=== PATIENT | male | born 1975 | race Caucasian/White ===

== ENCOUNTER 2019-07-10 17:08 | Emergency (ER) | payer SELFPAY ==
[~2019-07-10] VITALS: Ht 173 cm; Wt 38.0 kg
[2019-07-10] MEDS ORDERED: NS IV 1000 ML 1,000 ML IV SCH (17:24)
[2019-07-10] MEDS ORDERED: ONDANSETRON 4 MG/2 ML (SDV) Z0FRAN IVP ONE (17:30)
--- NOTE | 2019-07-10 17:48 | ED GI ---
General Chief Complaint: Abdominal/GI Problems Stated Complaint: VOMITING Nursing Triage Note: PT STATES HX OF LUNG CA WITH METS TO BRAIN AND SPINE, STAGE 4, CC TODAY OF VOMITING, 2 MONTHS AGO WAS TOLD CHEMO WAS NOT HELPING. HAS BEEN TREATED AT . Sepsis Screen: No Definite Risk History of Present Illness Date Seen by Provider: Jul 10, 2019 Time Seen by Provider: 17:15 Initial Comments 43-year-old male presents for nausea and vomiting since 11:00 AM today. He has stage IV lung cancer with metastasis to the brain, spine and liver. He discontinued chemo and was told by his oncologist there is no further treatment at this time. He reports passing a small stool earlier today. He has been unable to keep any fluids or food in. He has Zofran and Compazine at home but neither have helped or he has vomited after taking them. Patient denies having a primary care provider in this area. He goes to the [facility] for his medical management. He is full code and has not talked to a provider about hospice. Timing/Duration: 4-6 Hours Severity/Quality: Mild Location: Generalized Abdomen Radiation: No Radiation Activities at Onset: None Associated Symptoms: No Denies Symptoms, No Back Pain, No Chest Pain, No Diaphoresis, No Fever/Chills, No Fatigue, No Headache, No Heartburn; Nausea/Vomiting; No Rash, No Shortness of Air, No Swelling/Mass in Abdomen, No Syncope; Weakness; No Other Allergies and Home Medications Allergies Coded Allergies: No Known Drug Allergies (Unverified , 07/10/19) Patient Home Medication List Home Medication List Reviewed: Yes Review of Systems Review of Systems Constitutional: no symptoms reported, see HPI Gastrointestinal: See HPI; Denies Blood Streaked Stools, Denies Constipated, Denies Diarrhea, Denies Difficulty Swallowing; Nausea, Poor Appetite, Poor Fluid Intake; Denies Rectal Bleeding; Vomiting All Other Systems Reviewed Negative Unless Noted: Yes Past Vhkvwtd-Cruthx-Pdxapp Hx Past Med/Social Hx: Reviewed Nursing Past Med/Soc Hx Patient Social History Alcohol Use: Rarely Uses Alcohol Beverage of Choice: Beer Recreational Drug Use: Yes (THC) Smoking Status: Current Everyday Smoker Type Used: Cigarettes Recent Foreign Travel: No Contact w/Someone Who Travel: No Recent Infectious Disease Expo: No Recent Hopitalizations: No Physical Abuse: No Sexual Abuse: No Mistreated: No Fear: No Seasonal Allergies Seasonal Allergies: Yes Past Medical History Surgeries: Yes (HERNIA, BACK, BI LAT SHOULDERS) Orthopedic Respiratory: No Cardiac: No Neurological: Yes (SEIZURE DUE TO BRAIN CA) Seizure Disorder Gastrointestinal: No Musculoskeletal: Yes (CA IN SPINE) Endocrine: No HEENT: No Cancer: Yes (SPINE) Brain, Bone, Lung Did You Recieve Any Treatments: Yes What Type of Treatment Did You: Chemotherapy, Radiation, Surgical Intervention Psychosocial: No Integumentary: No Physical Exam Vital Signs Vital Signs - First Documented 07/10/19 17:14 Temp 36.7 Pulse 79 Resp 18 B/P (MAP) 138/95 (109) Pulse Ox 100 O2 Delivery Room Air Capillary Refill : NONE Height/Weight/BMI Height: '" Weight: lbs. oz. kg; 12.00 BMI Method: General Appearance: WD/WN, mild distress, cachetic HEENT: PERRL/EOMI, normal ENT inspection, TMs normal, pharynx normal, other (oromucosa pale and dry.) Neck: full range of motion, normal inspection Respiratory: chest non-tender, lungs clear, normal breath sounds, other (clubbing noted to finger nails) Cardiovascular: normal peripheral pulses, regular rate, rhythm Gastrointestinal: normal bowel sounds, non tender, soft Extremities: normal range of motion, non-tender, normal inspection, other (intentional tremor noted to right upper extremity, the patient reports this is been present since his seizure) Neurologic/Psychiatric: no motor/sensory deficits, alert, normal mood/affect, oriented x 3 Skin: warm/dry, pallor Progress/Results/Core Measures Results/Orders Lab Results Laboratory Tests Test 07/10/19 17:42 07/10/19 18:33 Range/Units White Blood Count 9.5 4.3-11.0 10^3/uL Red Blood Count 3.70 L 4.35-5.85 10^6/uL Hemoglobin 12.0 L 13.3-17.7 G/DL Hematocrit 36 L 40-54 % Mean Corpuscular Volume 96 80-99 FL Mean Corpuscular Hemoglobin 32 25-34 PG Mean Corpuscular Hemoglobin Concent 34 32-36 G/DL Red Cell Distribution Width 14.6 H 10.0-14.5 % Platelet Count 382 130-400 10^3/uL Mean Platelet Volume 8.1 7.4-10.4 FL Neutrophils (%) (Auto) 85 H 42-75 % Lymphocytes (%) (Auto) 9 L 12-44 % Monocytes (%) (Auto) 6 0-12 % Eosinophils (%) (Auto) 0 0-10 % Basophils (%) (Auto) 0 0-10 % Neutrophils # (Auto) 8.0 H 1.8-7.8 X 10^3 Lymphocytes # (Auto) 0.9 L 1.0-4.0 X 10^3 Monocytes # (Auto) 0.6 0.0-1.0 X 10^3 Eosinophils # (Auto) 0.0 0.0-0.3 10^3/uL Basophils # (Auto) 0.0 0.0-0.1 10^3/uL Sodium Level 132 L 135-145 MMOL/L Potassium Level 3.2 L 3.6-5.0 MMOL/L Chloride Level 96 L 98-107 MMOL/L Carbon Dioxide Level 23 21-32 MMOL/L Anion Gap 13 5-14 MMOL/L Blood Urea Nitrogen 11 7-18 MG/DL Creatinine 0.57 L 0.60-1.30 MG/DL Estimat Glomerular Filtration Rate > 60 BUN/Creatinine Ratio 19 Glucose Level 103 70-105 MG/DL Calcium Level 9.0 8.5-10.1 MG/DL Corrected Calcium 9.1 8.5-10.1 MG/DL Total Bilirubin 0.5 0.1-1.0 MG/DL Aspartate Amino Transf (AST/SGOT) 12 5-34 U/L Alanine Aminotransferase (ALT/SGPT) 19 0-55 U/L Alkaline Phosphatase 155 H 40-136 U/L Total Protein 6.9 6.4-8.2 GM/DL Albumin 3.9 3.2-4.5 GM/DL Amylase Level 49 25-125 U/L Lipase 21 8-78 U/L Urine Color YELLOW Urine Clarity SL CLOUDY Urine pH 8.0 5-9 Urine Specific [place] 1.010 L 1.016-1.022 Urine Protein NEGATIVE NEGATIVE Urine Glucose (UA) NEGATIVE NEGATIVE Urine Ketones NEGATIVE NEGATIVE Urine Nitrite NEGATIVE NEGATIVE Urine Bilirubin NEGATIVE NEGATIVE Urine Urobilinogen 0.2 < = 1.0 MG/DL Urine Leukocyte Esterase NEGATIVE NEGATIVE Urine RBC (Auto) NEGATIVE NEGATIVE Urine RBC NONE /HPF Urine WBC NONE /HPF Urine Crystals NONE /LPF Urine Amorphous Sediment RARE KUMAR PHOSPHATE H /LPF Urine Bacteria MODERATE H /HPF Urine Casts NONE /LPF Urine Mucus NEGATIVE /LPF Urine Culture Indicated NO My Orders Orders - BARDAYANA Amylase (07/10/19 17:24) Cbc With Automated Diff (07/10/19 17:24) Comprehensive Metabolic Panel (07/10/19 17:24) Lipase (07/10/19 17:24) Ua Culture If Indicated (07/10/19 17:24) Ondansetron Injection (Zofran Injectio (07/10/19 17:30) Ed Iv/Invasive Line Start (07/10/19 17:24) Ns Iv 1000 Ml (Sodium Chloride 0.9%) (07/10/19 17:24) Ns W/Kcl 20 Meq/L (Ns Iv W/Kcl 20 Meq/L) (07/10/19 18:30) Morphine Injection (Morphine Injection (07/10/19 19:18) Famotidine Injection (Pepcid Injection) (07/10/19 20:15) Medications Given in ED Current Medications Medications Dose Ordered Sig/Fanta Route Start Time Stop Time Status Last Admin Dose Admin Famotidine 20 mg ONCE ONCE IVP 07/10/19 20:15 07/10/19 20:16 DC 07/10/19 20:10 20 MG Ondansetron HCl 8 mg ONCE ONCE IVP 07/10/19 17:30 07/10/19 17:31 DC 07/10/19 17:46 8 MG Vital Signs/I&O 07/10/19 07/10/19 17:14 20:12 Temp 36.7 36.7 Pulse 79 76 Resp 18 18 B/P (MAP) 138/95 (109) 129/92 (109) Pulse Ox 100 100 O2 Delivery Room Air Room Air Blood Pressure Mean: 109 Progress Progress Note : Time: 17:15 Progress Note Patient seen and evaluated, will obtain labs, access the power port, normal saline 1 L per IV and Zofran 8 mg IV. 1800 Lab essentially normal, patient unable to urinate at this point. We'll gets Pepcid 20 mg IV. 1815 mild hypokalemia, will give normal saline with 20 mEq of potassium 1 L IV. 1830 patient complaining of mild pain, will give morphine 4 mg per IV. 191 patient resting with eyes closed, no nausea or vomiting since admission to the emergency department. 2004 patient continues to state that he is improved in his condition, discharge instructions and return precautions reviewed with him and encouraged that he establish with a primary care provider in [facility]. Departure Impression Primary Impression: Nausea and vomiting Qualified Codes: R11.14 - Bilious vomiting Additional Impression: Lung cancer, primary, with metastasis from lung to other site Qualified Codes: C34.90 - Malignant neoplasm of unspecified part of unspecified bronchus or lung Disposition: HOME, SELF-CARE Condition: Improved Departure-Patient Inst. Decision time for Depature: 20:05 Referrals: NO,LOCAL PHYSICIAN (PCP) Primary Care Physician Patient Instructions: Nausea and Vomiting, Adult (DC) Add. Discharge Instructions: Clear liquid diet for the next 6-8 hours and then advance to bland diet as tolerated. Use your Zofran and Compazine as needed for nausea and vomiting. Establish care with a primary care provider in [facility]: [facility] in [place] or the [facility] clinic in [place]. Return to the emergency department for new, urgent health care needs. All discharge instructions reviewed with patient and/or family. Voiced understanding. DAYANA DINERO Jul 10, 2019 17:48
[2019-07-10 17:49] LABS: BASOPHILS % (AUTO) 0 % (0-10); EOSINOPHILS % (AUTO) 0 % (0-10); HEMATOCRIT 36 % (40-54); LYMPHOCYTES # (AUTO) 0.9 X 10^3 (1.0-4.0); LYMPHOCYTES % (AUTO) 9 % (12-44); MEAN CORPUSCULAR HEMOGLOBIN 32 PG (25-34); MEAN CORPUSCULAR HGB CONC 34 G/DL (32-36); MEAN CORPUSCULAR VOLUME 96 FL (80-99); MEAN PLATELET VOLUME 8.1 FL (7.4-10.4); MONOCYTES # (AUTO) 0.6 X 10^3 (0.0-1.0); MONOCYTES % (AUTO) 6 % (0-12); NEUTROPHILS % (AUTO) 85 % (42-75); PLATELET COUNT 382 10^3/uL (130-400); RED CELL DISTRIBUTION WIDTH 14.6 % (10.0-14.5); WHITE BLOOD COUNT 9.5 10^3/uL (4.3-11.0)
[2019-07-10 18:18] LABS: ALANINE AMINOTRANSFERASE 19 U/L (0-55); ALBUMIN 3.9 GM/DL (3.2-4.5); ALKALINE PHOSPHATASE 155 U/L (40-136); AMYLASE 49 U/L (25-125); BILIRUBIN,TOTAL 0.5 MG/DL (0.1-1.0); BUN/CREATININE RATIO 19; CARBON DIOXIDE 23 MMOL/L (21-32); CHLORIDE 96 MMOL/L (98-107); CREATININE SERUM 0.57 MG/DL (0.60-1.30); GFR ESTIMATED > 60; GLUCOSE 103 MG/DL (70-105); LIPASE 21 U/L (8-78); POTASSIUM 3.2 MMOL/L (3.6-5.0); SODIUM 132 MMOL/L (135-145); TOTAL PROTEIN 6.9 GM/DL (6.4-8.2)
[2019-07-10] MEDS ORDERED: NS W/KCL 20 MEQ/L 1,000 ML IV SCH (18:30)
[2019-07-10 18:38] LABS: BILIRUBIN,URINE NEGATIVE (NEGATIVE); CLARITY,URINE SL CLOUDY; COLOR,URINE YELLOW; GLUCOSE, URINE (UA) NEGATIVE (NEGATIVE); KETONES,URINE NEGATIVE (NEGATIVE); LEUKOCYTE ESTERASE ,URINE NEGATIVE (NEGATIVE); NITRITE,URINE NEGATIVE (NEGATIVE); PROTEIN,URINE NEGATIVE (NEGATIVE)
--- NOTE | 2019-07-10 18:58 | NUR ---
Received report from JAVI Paz at this time to assume care of pt.
[2019-07-10 19:09] LABS: AMORPHOUS SEDIMENT,UR RARE AMOR PHOSPHATE /LPF; BACTERIA,URINE MODERATE /HPF
[2019-07-10] MEDS ORDERED: morphine INJ 10 MG/ML 1ML (SYR OR VIAL) IVP STA (19:18)
[2019-07-10 20:12] VITALS: BP 129/92
[2019-07-10] MEDS ORDERED: FAMOTIDINE 20MG/2ML IV (PEPCID) IVP ONE (20:15)
== END 2019-07-10 20:13 | disposition home or self-care (01) ==
LOC: ER 17:10
DX: R11.2 Nausea with vomiting, unspecified (principal); C34.90 Malignant neoplasm of unspecified part of unspecified bronchus or lung; C79.31 Secondary malignant neoplasm of brain; C78.7 Secondary malignant neoplasm of liver and intrahepatic bile duct; C79.51 Secondary malignant neoplasm of bone; G40.909 Epilepsy, unspecified, not intractable, without status epilepticus; F17.210 Nicotine dependence, cigarettes, uncomplicated
CPT/HCPCS: 36415; 80053; 81000; 82150; 83690; 85025; 96361; 96374; 96375

== ENCOUNTER 2019-10-22 13:33 | Emergency (ER) | payer MEDICAID, OTHER ==
[~2019-10-22] VITALS: Ht 170.1 cm; Wt 52.7 kg
--- OUTSIDE RECORDS SUMMARY | 2019-10-22 13:48 | XMS REPORT | Continuity of Care Document ---
Author Organization Unknown Address Unknown Phone Unavailable Allergies Active Description Code Type Severity Reaction Onset Reported/Identified Relationship to Patient Clinical Status Yes No Known Drug Allergies [id number] Drug Allergy Unknown N/A 07/10/2019 Medications There is no data. Problems Date Dx Coded Attending Type Code Diagnosis Diagnosed By 07/14/2019 BAR DAYANA SPICE GRINDER Ot C34.90 MALIGNANT NEOPLASM [facility] 07/14/2019 BAR, DAYANA SPICE GRINDER Ot C78.7 SECONDARY MALIG NEOPLASM OF LIVER AND IN 07/14/2019 BAR, DAYANA SPICE GRINDER Ot C79.31 SECONDARY MALIGNANT NEOPLASM OF BRAIN 07/14/2019 BAR, DAYANA SPICE GRINDER Ot C79.51 SECONDARY MALIGNANT NEOPLASM OF BONE 07/14/2019 BAR, DAYANA SPICE GRINDER Ot F17.210 NICOTINE DEPENDENCE, CIGARETTES, UNCOMPL 07/14/2019 BAR, DAYANA SPICE GRINDER Ot G40.909 EPILEPSY, UNSP, NOT INTRACTABLE, WITHOUT 07/14/2019 BAR, DAYANA SPICE GRINDER Ot R11.2 NAUSEA WITH VOMITING, UNSPECIFIED 07/16/2019 BAR, DAYANA SPICE GRINDER Ot C34.90 MALIGNANT NEOPLASM OF UNSP PART OF UNSP 07/16/2019 BAR, DAYANA SPICE GRINDER Ot C78.7 SECONDARY MALIG NEOPLASM OF LIVER AND IN 07/16/2019 BAR, DAYANA SPICE GRINDER Ot C79.31 SECONDARY MALIGNANT NEOPLASM OF BRAIN 07/16/2019 BAR, DAYANA SPICE GRINDER Ot C79.51 SECONDARY MALIGNANT NEOPLASM OF BONE 07/16/2019 BAR, DAYANA SPICE GRINDER Ot F17.210 NICOTINE DEPENDENCE, CIGARETTES, UNCOMPL 07/16/2019 BAR, DAYANA SPICE GRINDER Ot G40.909 EPILEPSY, UNSP, NOT INTRACTABLE, WITHOUT 07/16/2019 BAR, DAYANA SPICE GRINDER Ot R11.2 NAUSEA WITH VOMITING, UNSPECIFIED Procedures There is no data. Results Test Result Range Complete blood count (CBC) with automate d white blood cell (WBC) differential - 07/10/19 17:42 Blood leukocytes automated count (number/volume) 9.5 10*3/uL 4.3-11.0 Blood erythrocytes automated count (number/volume) 3.70 10*6/uL 4.35-5.85 Venous blood hemoglobin measurement (mass/volume) 12.0 g/dL 13.3-17.7 Blood hematocrit (volume fraction) 36 % 40-54 Automated erythrocyte mean corpuscular volume 96 [ foz_us] 80-99 Automated erythrocyte mean corpuscular h emoglobin (mass per erythrocyte) 32 pg 25-34 Automated erythrocyte mean corpuscular h emoglobin concentration measurement (mass/volume) 34 g/dL 32-36 Automated erythrocyte distribution width ratio 14. 6 % 10.0- 14.5 Automated blood platelet count (count/volume) 382 10*3/uL 130-400 Automated blood platelet mean volume measurement 8.1 [foz_us] 7.4-10.4 Automated blood neutrophils/100 leukocytes 85 % 42-75 Automated blood lymphocytes/100 leukocytes 9 % 12-44 Blood monocytes/100 leukocytes 6 % 0-12 Automated blood eosinophils/100 leukocytes 0 % 0-10 Automated blood basophils/100 leukocytes 0 % 0-10 Blood neutrophils automated count (number/volume) 8.0 10*3 1.8-7.8 Blood lymphocytes automated count (number/volume) 0.9 10*3 1.0-4.0 Blood monocytes automated count (number/volume) 0. 6 10*3 0.0-1.0 Automated eosinophil count 0.0 10*3/uL 0 .0-0.3 Automated blood basophil count (count/volume) 0.0 10*3/uL 0.0-0.1 Comprehensive metabolic panel - 07/10/19 17:42 Serum or plasma sodium measurement (moles/volume) 132 mmol/L 135-145 Serum or plasma potassium measurement (moles/volume) 3.2 mmol/L 3.6-5.0 Serum or plasma chloride measurement (moles/volume) 96 mmol/L 98-107 Carbon dioxide 23 mmol/L 21-32 Serum or plasma anion gap determination (moles/volume) 13 mmol/L 5-14 Serum or plasma urea nitrogen measurement (mass/volume ) 11 mg/dL 7-18 Serum or plasma creatinine measurement (mass/volume) 0.57 mg/dL 0.60-1.30 Serum or plasma urea nitrogen/creatinine mass ratio 19 NRG Serum or plasma creatinine measurement w ith calculation of estimated glomerular filtration rate > NRG Serum or plasma glucose measurement (mass/volume) 103 mg/dL 70-105 Serum or plasma calcium measurement (mass/volume) 9.0 mg/dL 8.5-10.1 Serum or plasma total bilirubin measurement (mass/volu me) 0.5 mg/dL 0.1-1.0 Serum or plasma alkaline phosphatase prashanth surement (enzymatic activity/volume) 155 U/L 40-136 Serum or plasma aspartate aminotransfera se measurement (enzymatic activity/volume) 12 U/L 5-34 Serum or plasma alanine aminotransferase measurement (enzymatic activity/volume) 19 U/L 0-55 Serum or plasma protein measurement (mass/volume) 6.9 g/dL 6.4-8.2 Serum or plasma albumin measurement (mass/volume) 3.9 g/dL 3.2-4.5 CALCIUM CORRECTED 9.1 mg/dL 8.5-10.1 Serum or plasma amylase measurement (enz ymatic activity/volume) - 07/10/19 17:42 Serum or plasma amylase measurement (enzymatic activit y/volume) 49 U/L 25-125 Lipase - 07/10/19 17:42 Lipase 21 U/L 8-78 Complete urinalysis with reflex to cultu re - 07/10/19 18:33 Urine color determination YELLOW NRG Urine clarity determination SL CLOUDY N RG Urine pH measurement by test strip 8.0 5-9 Specific gravity of urine by test strip 1.010 1.016-1.022 Urine protein assay by test strip, semi-quantitative NEGATIVE NEGATIVE Urine glucose detection by automated test strip NE GATIVE NEGATIVE Erythrocytes detection in urine sediment by light micr oscopy NEGATIVE NEGATIVE Urine ketones detection by automated test strip NE GATIVE NEGATIVE Urine nitrite detection by test strip NEGATIVE NEGATIVE Urine total bilirubin detection by test strip NEGA TIVE NEGATIVE Urine urobilinogen measurement by automated test strip (mass/volume) 0.2 mg/dL < = 1.0 Urine leukocyte esterase detection by dipstick NEG ATIVE NEGATIVE Automated urine sediment erythrocyte cou nt by microscopy (number/high power field) NONE NRG Automated urine sediment leukocyte count by microscopy (number/high power field) NONE NRG Bacteria detection in urine sediment by light microsco py MODERATE NRG Crystals detection in urine sediment by light microsco py NONE NRG Casts detection in urine sediment by light microscopy NONE NRG Mucus detection in urine sediment by light microscopy NEGATIVE NRG Complete urinalysis with reflex to culture NO NRG Amorphous sediment detection in urine sediment by ligh t microscopy RARE KUMAR PHOSPHATE NRG Encounters ACCT No. Visit Date/Time Discharge Status Pt. Type Provider Facility Loc./Unit Complaint [id number] 07/10/2019 17:10:00 019 20:13:00 DIS Outpatient DAYANA DINERO a [facility] ER VOMITING
--- NOTE | 2019-10-22 13:59 | ED General ---
General Chief Complaint: General Problems/Pain Stated Complaint: R EAR DRAINAGE Source of Information: Patient Exam Limitations: No Limitations History of Present Illness Date Seen by Provider: Oct 22, 2019 Time Seen by Provider: 13:55 Initial Comments To ER with reports of right ear drainage, left leg pain. He was sent here from [facility]. 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 He also has a known DVT in the left femoral vein but it is unclear as current. Not on anticoagulation currently. Timing/Duration: 1-2 Days Severity: Moderate Associated Systoms: Cough Allergies and Home Medications Allergies Coded Allergies: No Known Drug Allergies (Unverified , 07/10/19) Patient Home Medication List Home Medication List Reviewed: Yes Review of Systems Review of Systems Constitutional: see HPI; No chills, No fever EENTM: see HPI Respiratory: see HPI, cough, short of breath Cardiovascular: no symptoms reported Genitourinary: no symptoms reported Musculoskeletal: no symptoms reported Skin: no symptoms reported Psychiatric/Neurological: No Symptoms Reported Hematologic/Lymphatic: No Symptoms Reported Immunological/Allergic: no symptoms reported Past Kgvhxzq-Tevtxt-Bswoas Hx Patient Social History Alcohol Beverage of Choice: Beer Type Used: Cigarettes Recent Foreign Travel: No Contact w/Someone Who Travel: No Recent Hopitalizations: No Seasonal Allergies Seasonal Allergies: Yes Past Medical History Surgeries: Yes (HERNIA, BACK, BI LAT SHOULDERS) Orthopedic Respiratory: No Cardiac: No Neurological: Yes (SEIZURE DUE TO BRAIN CA) Seizure Disorder Gastrointestinal: No Musculoskeletal: Yes (CA IN SPINE) Endocrine: No HEENT: No Cancer: Yes (SPINE) Brain, Bone, Lung Did You Recieve Any Treatments: Yes What Type of Treatment Did You: Chemotherapy, Radiation, Surgical Intervention Psychosocial: No Integumentary: No Physical Exam Vital Signs Vital Signs - First Documented 10/22/19 13:33 Temp 36.7 Pulse 93 Resp 18 B/P (MAP) 113/83 (93) Pulse Ox 99 O2 Delivery Room Air Capillary Refill : Height, Weight, BMI Height: '" Weight: lbs. oz. kg; 12.00 BMI Method: General Appearance: No Apparent Distress, WD/WN, Chronically ill Eyes: Bilateral Eye Normal Inspection, Bilateral Eye PERRL, Bilateral Eye EOMI HEENT: PERRL/EOMI, TMs Normal Neck: Full Range of Motion, Normal Inspection Respiratory: No Accessory Muscle Use, No Respiratory Distress Cardiovascular: Regular Rate, Rhythm, Normal Peripheral Pulses Gastrointestinal: Normal Bowel Sounds, Non Tender, Soft Extremity: Normal Capillary Refill, Normal Inspection Neurologic/Psychiatric: Alert, Oriented x3 Skin: Normal Color, Warm/Dry Focused Exam Lactate Level 10/22/19 14:00: Lactic Acid Level 0.79 Lactic Acid Level Laboratory Tests Test 10/22/19 14:00 Lactic Acid Level 0.79 MMOL/L (0.50-2.00) Progress/Results/Core Measures Suspected Sepsis SIRS Temperature: Pulse: Respiratory Rate: Laboratory Tests 10/22/19 14:00: White Blood Count 12.3H Blood Pressure / Mean: 10/22/19 14:00: Lactic Acid Level 0.79 Laboratory Tests 10/22/19 14:00: Creatinine 0.63, INR Comment 0.9, Platelet Count 352, Total Bilirubin 0.3 Results/Orders Lab Results Laboratory Tests Test 10/22/19 14:00 Range/Units White Blood Count 12.3 H 4.3-11.0 10^3/uL Red Blood Count 3.66 L 4.35-5.85 10^6/uL Hemoglobin 12.2 L 13.3-17.7 G/DL Hematocrit 36 L 40-54 % Mean Corpuscular Volume 99 80-99 FL Mean Corpuscular Hemoglobin 33 25-34 PG Mean Corpuscular Hemoglobin Concent 34 32-36 G/DL Red Cell Distribution Width 14.7 H 10.0-14.5 % Platelet Count 352 130-400 10^3/uL Mean Platelet Volume 8.2 7.4-10.4 FL Neutrophils (%) (Auto) 87 H 42-75 % Lymphocytes (%) (Auto) 7 L 12-44 % Monocytes (%) (Auto) 6 0-12 % Eosinophils (%) (Auto) 0 0-10 % Basophils (%) (Auto) 0 0-10 % Neutrophils # (Auto) 10.7 H 1.8-7.8 X 10^3 Lymphocytes # (Auto) 0.9 L 1.0-4.0 X 10^3 Monocytes # (Auto) 0.7 0.0-1.0 X 10^3 Eosinophils # (Auto) 0.0 0.0-0.3 10^3/uL Basophils # (Auto) 0.0 0.0-0.1 10^3/uL Neutrophils % (Manual) 90 % Lymphocytes % (Manual) 8 % Monocytes % (Manual) 2 % Anisocytosis SLIGHT Prothrombin Time 13.0 12.2-14.7 SEC INR Comment 0.9 0.8-1.4 Activated Partial Thromboplast Time 29 24-35 SEC Sodium Level 132 L 135-145 MMOL/L Potassium Level 4.5 3.6-5.0 MMOL/L Chloride Level 99 98-107 MMOL/L Carbon Dioxide Level 20 L 21-32 MMOL/L Anion Gap 13 5-14 MMOL/L Blood Urea Nitrogen 11 7-18 MG/DL Creatinine 0.63 0.60-1.30 MG/DL Estimat Glomerular Filtration Rate > 60 BUN/Creatinine Ratio 17 Glucose Level 99 70-105 MG/DL Lactic Acid Level 0.79 0.50-2.00 MMOL/L Calcium Level 9.0 8.5-10.1 MG/DL Corrected Calcium 9.0 8.5-10.1 MG/DL Total Bilirubin 0.3 0.1-1.0 MG/DL Aspartate Amino Transf (AST/SGOT) 17 5-34 U/L Alanine Aminotransferase (ALT/SGPT) 24 0-55 U/L Alkaline Phosphatase 135 40-136 U/L Total Protein 7.3 6.4-8.2 GM/DL Albumin 4.0 3.2-4.5 GM/DL Procalcitonin 0.04 <0.10 NG/ML My Orders Orders - BERENICE CERNA VIDEO NEWS EDITOR Cbc With Automated Diff (10/22/19 13:46) Comprehensive Metabolic Panel (10/22/19 13:46) Protime With Inr (10/22/19 13:46) Partial Thromboplastin Time (10/22/19 13:46) Procalcitonin (Pct) (10/22/19 13:46) Blood Culture (10/22/19 13:46) Lactic Acid Analyzer (10/22/19 13:46) Us Venous Lower Ext Lt (10/22/19 13:46) Chest Pa/Lat (2 View) (10/22/19 13:46) Manual Differential (10/22/19 14:00) Baclofen Tablet (Lioresal Tablet) (10/22/19 15:00) Ct Angio Chest W (10/22/19 15:17) Iohexol Injection (Omnipaque 350 Mg/Ml 1 (10/22/19 15:30) Received Contrast (Hold Metformin- Contr (10/22/19 15:30) Ns (Ivpb) (Sodium Chloride 0.9% Ivpb Bag (10/22/19 15:30) General/Regular (10/22/19 Lunch) Apixaban Tablet (Eliquis Tablet) (10/22/19 16:45) Medications Given in ED Current Medications Medications Dose Ordered Sig/Fanta Route Start Time Stop Time Status Last Admin Dose Admin Iohexol 75 ml ONCE ONCE IV 10/22/19 15:30 10/22/19 15:36 DC 10/22/19 15:51 75 ML Sodium Chloride 100 ml ONCE ONCE IV 10/22/19 15:30 10/22/19 15:36 DC 10/22/19 15:51 100 ML Vital Signs/I&O 10/22/19 13:33 Temp 36.7 Pulse 93 Resp 18 B/P (MAP) 113/83 (93) Pulse Ox 99 O2 Delivery Room Air Capillary Refill : Departure Communication (Admissions) 1631- patient is adamant that he discharged home, does not want to stay in the hospital. Because of the left ankle swelling I will prescribe Augmentin 875 by mouth twice a day. His Percocet 04/24/25 is inadequate for his pain control. Considering the degree of metastasis of his lung cancer I will add morphine orally to his pain regimen. Spoke with Dr. Sevilla about the Eliquis because of cost she will send this to the [facility] ([place]) Impression Primary Impression: left lower lobe pulmonary emboli Additional Impression: Metastatic cancer to lung Disposition: HOME, SELF-CARE Condition: Stable Departure-Patient Inst. Decision time for Depature: 16:40 Referrals: NO,LOCAL PHYSICIAN (PCP) Primary Care Physician Patient Instructions: Lung Cancer (DC) Add. Discharge Instructions: 1. Antibiotics and pain medication as directed 2. The blood thinner has been sent to [facility] in [place] at their pharmacy. He'll All discharge instructions reviewed with patient and/or family. Voiced under standing. Scripts Amoxicillin/Potassium Clav (Augmentin 875-125 Tablet) 1 Each Tablet 1 EACH PO BID, #14 TAB 0 Refills Prov: BERENICE CERNA APRN 10/22/19 BERENICE CERNA APRN Oct 22, 2019 13:59
[2019-10-22 14:11] LABS: BASOPHILS % (AUTO) 0 % (0-10); EOSINOPHILS % (AUTO) 0 % (0-10); HEMATOCRIT 36 % (40-54); HEMOGLOBIN 12.2 G/DL (13.3-17.7); LYMPHOCYTES # (AUTO) 0.9 X 10^3 (1.0-4.0); LYMPHOCYTES % (AUTO) 7 % (12-44); MEAN CORPUSCULAR HEMOGLOBIN 33 PG (25-34); MEAN CORPUSCULAR HGB CONC 34 G/DL (32-36); MEAN CORPUSCULAR VOLUME 99 FL (80-99); MEAN PLATELET VOLUME 8.2 FL (7.4-10.4); MONOCYTES # (AUTO) 0.7 X 10^3 (0.0-1.0); MONOCYTES % (AUTO) 6 % (0-12); NEUTROPHILS # (AUTO) 10.7 X 10^3 (1.8-7.8); NEUTROPHILS % (AUTO) 87 % (42-75); PLATELET COUNT 352 10^3/uL (130-400); RED CELL DISTRIBUTION WIDTH 14.7 % (10.0-14.5); WHITE BLOOD COUNT 12.3 10^3/uL (4.3-11.0)
[2019-10-22] MEDS ORDERED: NAPR-1084 (14:12)
[2019-10-22] MEDS ORDERED: TRZ50T (14:12)
[2019-10-22] MEDS ORDERED: METH4TAB10 (14:12)
[2019-10-22] MEDS ORDERED: BENZ-36 (14:12)
[2019-10-22] MEDS ORDERED: FAMO20TA5 (14:12)
[2019-10-22] MEDS ORDERED: AZIT250T12 (14:12)
[2019-10-22] MEDS ORDERED: OSEL75CA15 (14:12)
[2019-10-22] MEDS ORDERED: DEXA2TAB (14:12)
[2019-10-22] MEDS ORDERED: OXYC-465 (14:12)
[2019-10-22] MEDS ORDERED: BACL10TA (14:12)
[2019-10-22 14:22] LABS: INR 0.9 (0.8-1.4)
[2019-10-22 14:31] LABS: ALANINE AMINOTRANSFERASE 24 U/L (0-55); ALKALINE PHOSPHATASE 135 U/L (40-136); BILIRUBIN,TOTAL 0.3 MG/DL (0.1-1.0); BUN/CREATININE RATIO 17; CARBON DIOXIDE 20 MMOL/L (21-32); CHLORIDE 99 MMOL/L (98-107); CREATININE SERUM 0.63 MG/DL (0.60-1.30); GFR ESTIMATED > 60; GLUCOSE 99 MG/DL (70-105); POTASSIUM 4.5 MMOL/L (3.6-5.0); SODIUM 132 MMOL/L (135-145); TOTAL PROTEIN 7.3 GM/DL (6.4-8.2)
--- NOTE | 2019-10-22 14:42 | Diagnostic Imaging Report ---
INDICATION: Pain, blood clot, lung cancer COMPARISON: None available TECHNIQUE: Frontal and lateral radiographs of the chest dated 10/22/2019. FINDINGS: Right-sided Port-A-Cath is present with the distal tip overlying the lower aspect of the superior vena cava. The cardiac silhouette is within normal limits in size. No significant pulmonary vascular congestion. The left lung is clear. Prominence of the right hilar region is noted with associated distortion and elevation of the right hilum. Additionally, an irregular 2 cm nodular density is noted overlying the right upper lung with adjacent parenchymal distortion. An additional 2.2 cm nodular density is seen overlying the right midlung on the frontal radiograph. Increased interstitial opacities within the right middle lobe. No significant pleural effusion. Bullous disease is identified within the right upper lung. No acute osseous abnormality. IMPRESSION: Several right-sided pulmonary nodules with associated prominence of the right hilum is concerning for possible neoplasm/mass lesions with associated right hilar adenopathy. Postobstructive atelectasis versus pneumonia within the right middle lobe. Port-A-Cath is in place. Dictated by: Dictated on workstation # [id number]
[2019-10-22 14:45] LABS: ANISOCYTOSIS SLIGHT; LYMPHOCYTES % (MANUAL) 8 %; MONOCYTES % (MANUAL) 2 %; NEUTROPHILS % (MANUAL) 90 %
[2019-10-22] MEDS ORDERED: BACLOFEN 10 MG (LIORESAL) TAB PO SCH (15:00)
--- NOTE | 2019-10-22 15:06 | NUR ---
MEDS GIVEN NO CHANGE FROM ADMIT TO ED.
[2019-10-22] MEDS ORDERED: HOLD METFORMIN - RECEIVED CONTRAST 20 ML VIAL IV SCH (15:30)
[2019-10-22] MEDS ORDERED: IOHEXOL 350 MG/ML 100 ML (OMNIPAQUE 350) VIAL IV ONE (15:30)
[2019-10-22] MEDS ORDERED: NS 100 ML (IVPB) BAG IV ONE (15:30)
--- NOTE | 2019-10-22 15:47 | Diagnostic Imaging Report ---
INDICATION: Left lower extremity swelling. COMPARISON: None. TECHNIQUE: Duplex, dominguez-scale and color-flow imaging of the left lower extremity venous system was performed. FINDINGS: The common femoral vein, superficial femoral vein, profunda femoris, and popliteal veins are normal. These vessels show normal compressibility, color flow, and doppler augmentation. The deep calf veins, although not very well seen, demonstrate no distinct intraluminal thrombus. IMPRESSION: Negative venous Doppler of the left lower extremity. Dictated by: Dictated on workstation # [id number]
--- NOTE | 2019-10-22 16:22 | Diagnostic Imaging Report ---
PROCEDURE: CT angiography of the chest with contrast. TECHNIQUE: Multiple contiguous axial images were obtained through the chest after uneventful bolus administration of intravenous contrast. 3D reconstructed CTA MIP acquisitions were also performed. Auto Exposure Controls were utilized during the CT exam to meet ALARA standards for radiation dose reduction. INDICATION: History of lung cancer with metastatic disease. Leg pain. Shortness of air. Suspect PE. COMPARISON: None FINDINGS: Multiple pulmonary emboli are identified within the basilar subsegmental branches of the left lower lobe. No central or saddle emboli are identified. There is no evidence of right heart strain. Intraventricular septum is in appropriate position. Heart size is within normal limits. There is no large pericardial effusion. Note is made of mild scattered calcified aortic and coronary atherosclerosis. There is atelectasis of the right upper lobe; likely postobstructive. There does appear to be associated poorly marginated perihilar mass resulting in compression of the right upper lobe bronchus. Margins of the malignancy are difficult to delineate from surrounding atelectasis, but instruments sales representative measurements are 2.8 x 2.1 cm. There is additional pulmonary nodule within the anterolateral margins of the right lower lobe. It measures 2.2 x 1.5 cm. There is also spiculated nodule of the superior segment of the right lower lobe that measures 3.1 x 2.6 cm. Irregular septal thickening of the right middle and right lower lobes is also noted consistent with lymphangitic carcinomatosis. Mild emphysematous changes of the bilateral upper lung adams are also noted. Left lung is otherwise relatively clear. No large effusion or pneumothorax is seen on either side. Osseous structures show no acute abnormalities. Osteolytic lesion of the L1 vertebral body is identified on the left and measures 1.7 x 2 cm and is consistent with metastatic disease (image 99, series 601). Included portions of the upper abdomen show multiple hypoenhancing masses scattered throughout the liver. Small nodular hypoenhancing lesions are also seen within the inferior tip of the right lobe. The largest mass measures 5.2 x 4.5 cm. IMPRESSION: 1. Multiple small emboli of the left lower lobe. 2. No evidence of right heart failure. 3. Probable postobstructive atelectasis of the right upper lobe secondary to right hilar mass. 4. 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 5. Metastatic lesions within the liver and lumbar spine. Results were called to Dr. Mosqueda by Dr. Acuna at 1600 hours on 10/22/2019. Dictated by: Dictated on workstation # [id number]
[2019-10-22] MEDS ORDERED: AMOX-358 PO (16:42)
[2019-10-22] MEDS ORDERED: MORP15TA PO (16:42)
[2019-10-22] MEDS ORDERED: APIXABAN 5 MG (ELIQUIS) TABLET PO SCH (16:45)
[2019-10-22 16:52] VITALS: BP 112/72
== END 2019-10-22 17:01 | disposition home or self-care (01) ==
LOC: EDUNIT# 13:33 → ER 13:34
DX: I26.99 Other pulmonary embolism without acute cor pulmonale (principal); C34.91 Malignant neoplasm of unspecified part of right bronchus or lung; C79.51 Secondary malignant neoplasm of bone; C79.31 Secondary malignant neoplasm of brain; C79.01 Secondary malignant neoplasm of right kidney and renal pelvis; C79.02 Secondary malignant neoplasm of left kidney and renal pelvis; C78.7 Secondary malignant neoplasm of liver and intrahepatic bile duct; Z86.718 Personal history of other venous thrombosis and embolism; G40.909 Epilepsy, unspecified, not intractable, without status epilepticus; Z92.21 Personal history of antineoplastic chemotherapy; Z92.3 Personal history of irradiation
CPT/HCPCS: 36415; 71046; 71275; 80053; 83605; 84145; 85007; 85027; 85610; 85730; 87040